=== PATIENT | female | born 1995 | race Two or more races ===

== ENCOUNTER → 2020-12-12 | Outpatient (CLI) | payer OTHER | LOC: LAB 10:27 | PROVIDERS: ATTEND Obstetrics & Gynecology | DX: Z01.812 Encounter for preprocedural laboratory examination (principal); Z20.822 Contact with and (suspected) exposure to COVID-19 | CPT/HCPCS: U0003 ==

== ENCOUNTER 2020-12-14 17:12 | Inpatient (IN) | payer OTHER ==
[~2020-12-14] VITALS: Ht 160 cm; Wt 89.8 kg
[2020-12-14] MEDS ORDERED: DINOPROSTONE 10 MG SUPP.VAG VG ONE (17:30)
[2020-12-14] MEDS ORDERED: LIDOCAINE 1% PF 30 ML VIAL. INJ PRN (17:30)
[2020-12-14] MEDS ORDERED: BUTORPHANOL 2 MG/ML VIAL. IVP PRN (17:30)
[2020-12-14] MEDS ORDERED: ACETAMINOPHEN 325 MG TABLET. PO PRN (17:30)
[2020-12-14] MEDS ORDERED: TERBUTALINE 1 MG/ML VIAL. SQ PRN (17:30)
[2020-12-14] MEDS ORDERED: 0.9 % SODIUM CHLORIDE 10 ML DISP.SYRIN. IV PRN (17:30)
[2020-12-14 18:11] LABS: BASO # 0.1 x10^3/uL (0.0-0.2); BASO % 1 % (0-3); EOS % 0 % (0-3); HEMATOCRIT 35.6 % (36.0-47.0); HEMOGLOBIN 11.9 g/dL (12.0-15.5); LYMPH % 22 % (24-48); MEAN CORPUSCULAR HEMOGLOBIN 29 pg (25-35); MEAN CORPUSCULAR HGB CONC 34 g/dL (31-37); MEAN CORPUSCULAR VOLUME 86 fL (79-100); MONO # 0.7 x10^3/uL (0.0-1.1); MONO % 7 % (0-9); NEUT # 6.3 x10^3/uL (1.8-7.7); NEUT % 69 % (31-73); PLATELET COUNT 169 x10^3/uL (140-400); RED BLOOD COUNT 4.15 x10^6/uL (3.50-5.40); RED CELL DISTRIBUTION WIDTH 14.9 % (11.5-14.5); WHITE BLOOD COUNT 9.1 x10^3/uL (4.0-11.0)
--- NOTE | 2020-12-14 18:13 | PDOC1 ---
WARDSPERSON H&P Date of Admission: Date of Admission: Dec 14, 2020 at 17:12 History of Present Illness: EDC: 12/10/20 LMP: 03/05/20 24y @ 40.4 by L=27 presents for indxn of labor. The pt began her care with [facility] and decided to [place] [facility] [place]. She missed several visits b/t 22-37wks due to transportation issues. The pt had not received TDAP. Explained that the added benefit of passive immunity would not be present since she is after 36wks. She would have the same benefit of getting the vaccine now as getting it PP. PMH: Denies PSH: Denies Meds: PNV All: NKDA OBHx: G1 SH: no tob, no EtOH FH: DM Allergies: Coded Allergies: No Known Drug Allergies (Unverified , 12/14/20) Physical Exam: PE: GENERAL: No apparent distress. Alert and oriented. HEENT: Head normocephalic, atraumatic. NECK: Supple LUNGS: Clear to auscultation. HEART: RRR, S1, S2 present, pulses intact ABDOMEN: Soft, positive bowel sounds. EXTREMITIES: No cyanosis or edema. NEUROLOGIC: Normal speech, normal tone PSYCHIATRIC: Normal affect, normal mood. SKIN: No ulceration. FHT: 130s +acels/no decels/mLTV Goulds: 10-15 min SVE: 10/27/-3 Labs: Laboratory Tests Test 12/14/20 18:00 White Blood Count 9.1 x10^3/uL (4.0-11.0) Red Blood Count 4.15 x10^6/uL (3.50-5.40) Hemoglobin 11.9 g/dL (12.0-15.5) L Hematocrit 35.6 % (36.0-47.0) L Mean Corpuscular Volume 86 fL (79-100) Mean Corpuscular Hemoglobin 29 pg (25-35) Mean Corpuscular Hemoglobin Concent 34 g/dL (31-37) Red Cell Distribution Width 14.9 % (11.5-14.5) H Platelet Count 169 x10^3/uL (140-400) Neutrophils (%) (Auto) 69 % (31-73) Lymphocytes (%) (Auto) 22 % (24-48) L Monocytes (%) (Auto) 7 % (0-9) Eosinophils (%) (Auto) 0 % (0-3) Basophils (%) (Auto) 1 % (0-3) Neutrophils # (Auto) 6.3 x10^3/uL (1.8-7.7) Lymphocytes # (Auto) 2.0 x10^3/uL (1.0-4.8) Monocytes # (Auto) 0.7 x10^3/uL (0.0-1.1) Eosinophils # (Auto) 0.0 x10^3/uL (0.0-0.7) Basophils # (Auto) 0.1 x10^3/uL (0.0-0.2) Laboratory Tests 12/14/20 18:00 Laboratory Tests 12/14/20 18:00 Assessment & Plan: A/P 24y @ 40.4 by L=27 1.) Indxn cervidil placed at 1811 2.) JENNIFER from [facility] at 22wks 3.) Gap in care b/t 22-37wks 4.) Rub NI 5.) Eduardo NI 6.) H/o meth use 7.) Flu given 08/06/20 8.) TDAP PP 9.) Fetus cat I FHT 10.) GBS neg EMANUEL RAMESH MD Dec 14, 2020 18:13
[2020-12-14 18:58] VITALS: BP 125/68
[2020-12-14 19:13] LABS: BILIRUBIN,URINE NEGATIVE (NEG); CLARITY,URINE CLEAR; COLOR,URINE YELLOW; NITRITE,URINE NEGATIVE (NEG); PH,URINE 5.5 (<5.0-8.0); PROTEIN,URINE NEGATIVE (NEG-TRACE); UROBILINOGEN,URINE 0.2 mg/dL (0.2 mg/dL)
[2020-12-14 19:29] LABS: BACTERIA,URINE FEW /HPF (0-FEW); RBC,URINE 0 /HPF (0-2)
[2020-12-14] MEDS ORDERED: IV NORMAL SALINE 1000ML BAG 1,000 ML IV SCH (19:30)
[2020-12-14 20:07] LABS: BARBITURATES NEG (NEG); BENZODIAZEPINES NEG (NEG); CANNABINOIDS NEG (NEG); COCAINE NEG (NEG); METHADONE NEG (NEG); OPIATES NEG (NEG); PHENCYCLIDINE NEG (NEG)
[2020-12-14 20:13] LABS: AMPHETAMINE/METHAMPHETAMINE NEG (NEG)
[2020-12-15] MEDS: IV RINGERS,LACTATED 1000ML 1,000 ML IV SCH ×3 (06:44→16:09)
[2020-12-15] MEDS ORDERED: OXYTOCIN PREMIX 30 UNIT/500 ML NS BAG. IV ONE (07:00)
[2020-12-15] MEDS ORDERED: L&D EPIDURAL SYRINGE 50 ML ONE ×3 (11:55→18:27)
[2020-12-15] MEDS ORDERED: ROPIVacaine 0.2% PF 10 ML VIAL. ONE ×2 (11:56→13:00)
[2020-12-15] MEDS: OXYTOCIN 30 UNIT/500 ML PREMIX 500 ML IV PRN ×2 (12:22→22:19)
[2020-12-15] MEDS ORDERED: L&D EPIDURAL 50 ML SYRINGE. ONE (13:00)
--- NOTE | 2020-12-15 15:56 | PDOC ---
FRONT DESK ATTENDANT PROGRESS NOTE Date of Service: DATE: 12/15/20 TIME: 15:55 Subjective: Pt comfortable with epidural Objective: Vital Signs: Vital Signs Date Time Temp Pulse Resp B/P (MAP) Pulse Ox O2 Delivery O2 Flow Rate FiO2 12/14/20 18:58 98.1 105 20 125/68 (87) 98.1 Vital Signs Date Time Temp Pulse Resp B/P (MAP) Pulse Ox O2 Delivery O2 Flow Rate FiO2 12/14/20 18:58 98.1 105 20 125/68 (87) 98.1 Labs: Laboratory Tests Test 12/14/20 18:00 12/14/20 18:30 White Blood Count 9.1 x10^3/uL (4.0-11.0) Red Blood Count 4.15 x10^6/uL (3.50-5.40) Hemoglobin 11.9 g/dL (12.0-15.5) L Hematocrit 35.6 % (36.0-47.0) L Mean Corpuscular Volume 86 fL (79-100) Mean Corpuscular Hemoglobin 29 pg (25-35) Mean Corpuscular Hemoglobin Concent 34 g/dL (31-37) Red Cell Distribution Width 14.9 % (11.5-14.5) H Platelet Count 169 x10^3/uL (140-400) Neutrophils (%) (Auto) 69 % (31-73) Lymphocytes (%) (Auto) 22 % (24-48) L Monocytes (%) (Auto) 7 % (0-9) Eosinophils (%) (Auto) 0 % (0-3) Basophils (%) (Auto) 1 % (0-3) Neutrophils # (Auto) 6.3 x10^3/uL (1.8-7.7) Lymphocytes # (Auto) 2.0 x10^3/uL (1.0-4.8) Monocytes # (Auto) 0.7 x10^3/uL (0.0-1.1) Eosinophils # (Auto) 0.0 x10^3/uL (0.0-0.7) Basophils # (Auto) 0.1 x10^3/uL (0.0-0.2) Treponema pallidum Antibody Nonreactive (Nonreactive) Urine Collection Type Unknown Urine Color Yellow Urine Clarity Clear Urine pH 5.5 (<5.0-8.0) Urine Specific Coyote 1.020 (1.000-1.030) Urine Protein Negative mg/dL (NEG-TRACE) Urine Glucose (UA) Negative mg/dL (NEG) Urine Ketones (Stick) Negative mg/dL (NEG) Urine Blood Negative (NEG) Urine Nitrite Negative (NEG) Urine Bilirubin Negative (NEG) Urine Urobilinogen Dipstick 0.2 mg/dL (0.2 mg/dL) Urine Leukocyte Esterase Small (NEG) Urine RBC 0 /HPF (0-2) Urine WBC 1-4 /HPF (0-4) Urine Squamous Epithelial Cells Mod /LPF Urine Bacteria Few /HPF (0-FEW) Urine Mucus Slight /LPF Urine Opiates Screen Neg (NEG) Urine Methadone Screen Neg (NEG) Urine Barbiturates Neg (NEG) Urine Phencyclidine Screen Neg (NEG) Urine Amphetamine/Methamphetamine Neg (NEG) Urine Benzodiazepines Screen Neg (NEG) Urine Cocaine Screen Neg (NEG) Urine Cannabinoids Screen Neg (NEG) Urine Ethyl Alcohol Neg (NEG) Laboratory Tests 12/14/20 18:00 Laboratory Tests 12/14/20 18:00 Physical Exam: GENERAL: No apparent distress. Alert and oriented. HEENT: Head normocephalic, atraumatic. NECK: Supple LUNGS: Clear to auscultation. HEART: RRR, S1, S2 present, pulses intact ABDOMEN: Soft, positive bowel sounds. EXTREMITIES: No cyanosis or edema. NEUROLOGIC: Normal speech, normal tone PSYCHIATRIC: Normal affect, normal mood. SKIN: No ulceration. FHT: 110s +acels/early decels with each ctx/mLTV Burket: 1-2 min SVE: 6/C/-2 Assessment & Plan: A/P 24y @ 40.5 by L=27 1.) Indxn s/p cervidil, on Pit, AROM for augmentation at ~1100 (light [facility]), now with more bloody show 2.) JENNIFER from [facility] at 22wks 3.) Gap in care b/t 22-37wks 4.) Rub NI 5.) Eduardo NI 6.) H/o meth use 7.) Flu given 08/06/20 8.) TDAP PP 9.) Fetus cat II FHT, IUPC and FSE placed to better characterize decels 10.) GBS neg RAMESH,EMANUEL B MD Dec 15, 2020 15:56
[2020-12-15] MEDS ORDERED: ePHEDrine PF IN SALINE 50 MG/10 ML SYRINGE. IV PRN (19:15)
[2020-12-15] MEDS ORDERED: NALOXONE 0.4 MG/ML VIAL. IV PRN (19:15)
[2020-12-15] MEDS ORDERED: IV RINGERS,LACTATED 1000ML 1,000 ML IV ONE (19:15)
[2020-12-15] MEDS ORDERED: ONDANSETRON PF 4 MG/2 ML VIAL. IV PRN (19:15)
[2020-12-15] MEDS ORDERED: fentaNYL PF VIAL 100 MCG/2 ML VIAL IV ONE (19:15)
--- NOTE | 2020-12-15 22:14 | PDOC ---
VAGINAL DELIVERY DATE DATE: 12/15/20 TIME: 22:11 TIME Patient delivered a viable male infant over intact perineum at 2153. Wt 8 lb 5 oz. Apgars 8/9. Placenta delivered spontaneously, intact with 3VC. 2nd degree lacerations repaired with 2'0 vicryl in nml fashion. Good hemostasis noted. 20 U of Pit given with IVF. EBL 400cc. WEIGHT Weight [ ] EMANUEL RAMESH MD Dec 15, 2020 22:14
[2020-12-15] MEDS ORDERED: ZOLPIDEM 5 MG TABLET. PO PRN (22:15)
[2020-12-15] MEDS ORDERED: HYDROCORTISONE 1% TOPICAL OINTMENT 30GM TUBE. TP PRN (22:15)
[2020-12-15] MEDS ORDERED: PHENYLEPH/MINERAL OIL/PETROLAT RECTAL OINTMENT TUBE. RC PRN (22:15)
[2020-12-15] MEDS ORDERED: MMR per PROTOCOL. MC PRN (22:15)
[2020-12-15] MEDS ORDERED: 0.9 % SODIUM CHLORIDE 10 ML DISP.SYRIN. IV PRN (22:15)
[2020-12-15] MEDS ORDERED: TDaP (Adacel) per PROTOCOL. MC PRN (22:15)
[2020-12-15] MEDS ORDERED: oxyCODONE/APAP 5/325 1 TAB TABLET PO PRN (22:15)
[2020-12-15] MEDS ORDERED: MAG HYDROX/ALUMINUM HYD/SIMETH 30 ML ORAL.SUSP PO PRN (22:15)
[2020-12-15] MEDS ORDERED: BENZOCAINE 20% TOPICAL AEROSOL SPRAY 57GM CAN. TP PRN (22:15)
[2020-12-15] MEDS ORDERED: MAGNESIUM HYDROXIDE 2,400 MG/30 ML ORAL.SUSP. PO PRN (22:15)
[2020-12-15] MEDS ORDERED: diphenhydrAMINE HCL 25 MG CAPSULE PO PRN (22:15)
[2020-12-15] MEDS ORDERED: ACETAMINOPHEN 325 MG TABLET. PO PRN (22:15)
[2020-12-15] MEDS ORDERED: SIMETHICONE 80 MG TAB.CHEW PO PRN (22:15)
[2020-12-15] MEDS ORDERED: OXYTOCIN 30 UNIT/500 ML PREMIX 500 ML IV PRN (22:15)
[2020-12-15] MEDS: IBUPROFEN 400 MG TABLET. PO PRN (22:49)
[2020-12-16 00:10] VITALS: BP 102/52
[2020-12-16 04:00] VITALS: BP 90/55
[2020-12-16 06:08] LABS: HEMATOCRIT 28.2 % (36.0-47.0); HEMOGLOBIN 9.4 g/dL (12.0-15.5); RED BLOOD COUNT 3.28 x10^6/uL (3.50-5.40); RED CELL DISTRIBUTION WIDTH 14.8 % (11.5-14.5)
[2020-12-16] MEDS: IBUPROFEN 400 MG TABLET. PO PRN ×2 (08:13→22:10)
[2020-12-16] MEDS: PRENATAL MULTIVITAMIN TABLET. PO SCH (08:13)
[2020-12-16] MEDS: FERROUS SULFATE 325 MG TABLET. PO SCH (08:13)
[2020-12-16] MEDS: DOCUSATE SODIUM 100 MG CAPSULE. PO PRN ×2 (08:13→22:11)
--- NOTE | 2020-12-16 08:42 | NUR ---
assessment done. Patient cheerful eating breakfast. boyfriend at bedside. baby was brought in room and patient very happy to hold baby.
--- NOTE | 2020-12-16 09:40 | PDOC ---
KENNEL KEEPER PROGRESS NOTE Date of Service: DATE: 12/16/20 TIME: 09:40 Subjective: Pt with good pain control. Sheba PO. Voiding. Minimal lochia. Objective: Vital Signs: Vital Signs Date Time Temp Pulse Resp B/P (MAP) Pulse Ox O2 Delivery O2 Flow Rate FiO2 12/16/20 00:10 99.3 100 18 102/52 (69) Room Air 99.3 12/16/20 04:00 96 Vital Signs Date Time Temp Pulse Resp B/P (MAP) Pulse Ox O2 Delivery O2 Flow Rate FiO2 12/16/20 04:00 97.8 87 18 90/55 (67) 96 Room Air 97.8 Labs: Laboratory Tests Test 12/16/20 05:23 White Blood Count 17.0 x10^3/uL (4.0-11.0) H Red Blood Count 3.28 x10^6/uL (3.50-5.40) L Hemoglobin 9.4 g/dL (12.0-15.5) L Hematocrit 28.2 % (36.0-47.0) L Mean Corpuscular Volume 86 fL (79-100) Mean Corpuscular Hemoglobin 29 pg (25-35) Mean Corpuscular Hemoglobin Concent 33 g/dL (31-37) Red Cell Distribution Width 14.8 % (11.5-14.5) H Platelet Count 133 x10^3/uL (140-400) L Laboratory Tests 12/16/20 05:23 Laboratory Tests 12/16/20 05:23 Physical Exam: GENERAL: No apparent distress. Alert and oriented. HEENT: Head normocephalic, atraumatic. NECK: Supple LUNGS: Clear to auscultation. HEART: RRR, S1, S2 present, pulses intact ABDOMEN: Soft, positive bowel sounds. EXTREMITIES: No cyanosis or edema. NEUROLOGIC: Normal speech, normal tone PSYCHIATRIC: Normal affect, normal mood. SKIN: No ulceration. FFNT below umb No C/C/E Assessment & Plan: A/P 24y PPD #1 s/p 1.) PP doing well 2.) Rub NI 3.) Eduardo NI 4.) H/o meth use 5.) Flu given 08/06/20 6.) Needs TDAP 7.) Hgb 11.9 -> 9.4 8.) Cont PP care EMANUEL RAMESH MD Dec 16, 2020 09:40
[2020-12-16 11:00] VITALS: BP 100/53
[2020-12-16 16:01] VITALS: BP 111/53
[2020-12-16 20:00] VITALS: BP 111/72
[2020-12-17 06:25] VITALS: BP 105/49
[2020-12-17] MEDS ORDERED: DIPH,PERTUSS(ACELL),TET VAC/PF 0.5 ML SYRINGE. VAX IM ONE (07:45)
[2020-12-17] MEDS: DOCUSATE SODIUM 100 MG CAPSULE. PO PRN (08:21)
[2020-12-17] MEDS: IBUPROFEN 400 MG TABLET. PO PRN (08:21)
[2020-12-17] MEDS: PRENATAL MULTIVITAMIN TABLET. PO SCH (08:21)
[2020-12-17] MEDS: FERROUS SULFATE 325 MG TABLET. PO SCH (08:21)
[2020-12-17] MEDS ORDERED: IBUP-1060 PO (08:56)
[2020-12-17] MEDS ORDERED: DOCU-109 PO (08:56)
[2020-12-17 11:40] VITALS: BP 117/79
--- NOTE | 2020-12-17 12:14 | NUR ---
Pt. discharges off of floor with infant and FOB, belongings returned to pt. RN accompanies off of floor at 1212pm
--- NOTE | 2020-12-17 13:06 | PDOC ---
MERGERS AND ACQUISITIONS BANKER PROGRESS NOTE Date of Service: DATE: 12/17/20 TIME: 13:05 Subjective: Pt with good pain control. Sheba PO. Voiding. Minimal lochia. Objective: Vital Signs: Vital Signs Date Time Temp Pulse Resp B/P (MAP) Pulse Ox O2 Delivery O2 Flow Rate FiO2 12/16/20 11:00 97.3 93 18 100/53 (69) 98 97.3 12/16/20 20:00 Room Air Vital Signs Date Time Temp Pulse Resp B/P (MAP) Pulse Ox O2 Delivery O2 Flow Rate FiO2 12/17/20 11:40 97.7 100 16 117/79 (92) 100 Room Air 97.7 Physical Exam: GENERAL: No apparent distress. Alert and oriented. HEENT: Head normocephalic, atraumatic. NECK: Supple LUNGS: Clear to auscultation. HEART: RRR, S1, S2 present, pulses intact ABDOMEN: Soft, positive bowel sounds. EXTREMITIES: No cyanosis or edema. NEUROLOGIC: Normal speech, normal tone PSYCHIATRIC: Normal affect, normal mood. SKIN: No ulceration. FFNT below umb No C/C/E Assessment & Plan: A/P 24y PPD #2 s/p 1.) PP doing well 2.) Rub NI 3.) Eduardo NI 4.) H/o meth use 5.) Flu given 08/06/20 6.) Needs TDAP 7.) Hgb 11.9 -> 9.4 8.) D/c home EMANUEL RAMESH MD Dec 17, 2020 13:06
--- NOTE | 2020-12-17 13:19 | DS ---
DATE OF DISCHARGE: 12/17/2020 ADMISSION DIAGNOSES: 1. Intrauterine at 40 weeks and 4 days by LMP equal to a 27-week ultrasound. 2. Induction of labor. 3. Transfer of care from [facility] at 22 weeks. 4. Gap in care between 22-37 weeks. 5. Rubella nonimmune. 6. Varicella nonimmune. 7. History of methamphetamine use. 8. GBS negative. DISCHARGE DIAGNOSES: 1. Intrauterine at 40 weeks and 4 days by LMP equal to a 27-week ultrasound. 2. Induction of labor. 3. Transfer of care from [facility] at 22 weeks. 4. Gap in care between 22-37 weeks. 5. Rubella nonimmune. 6. Varicella nonimmune. 7. History of methamphetamine use. 8. GBS negative. PROCEDURE: Spontaneous vaginal delivery. BRIEF HOSPITAL COURSE: The patient is a 24-year-old 1, para 0, who presented to Labor and Delivery at 40 weeks and 4 days by LMP equal to a 27-week ultrasound for induction of labor. The patient began her care at [facility], but [place] [facility] [place]. The patient missed several visits between 20-37 weeks due to transportation issues. The patient did not receive Tdap during the because she returned after 36 weeks. The patient initially presented to Labor and Delivery for Cervidil placement. At that time, her cervix was 1 cm dilated. The following morning, her Cervidil was taken out and she was found to be roughly 1-2 cm dilated. She was started on Pitocin early that morning. The patient's membranes were ruptured. The patient ultimately progressed to complete later that night and delivered by vaginal delivery. See delivery note for full detail. By day #2, the patient was meeting all discharge criteria and was subsequently discharged home. Of note, the patient had hemoglobin of 11.9 on admission and after delivery was found to be 9.4. The patient was also given the Tdap vaccine on day #2. DISCHARGE INSTRUCTIONS: The patient was told not to lift anything greater than 20 pounds, have pelvic rest for 6 weeks. CALL IF: The patient was to call if she had fevers, chills, nausea, vomiting, abdominal pain or any additional questions or concerns. FOLLOWUP APPOINTMENT: The patient is to follow up on 01/20 at 9:00 a.m. [place] [facility] [place]. DISCHARGE MEDICATIONS: The patient was given a prescription for Motrin 800 mg 30 pills and Colace 100 mg 30 pills. EMANUEL RAMESH MD DR: JOSE ALFREDO/gin JOB#: [id number] / [id number]
== END 2020-12-17 12:18 | disposition home or self-care (01) | DRG 807 ==
LOC: 3 SO LND 17:12
PROVIDERS: ADMIT Obstetrics & Gynecology; ATTEND Obstetrics & Gynecology
PROC: 0KQM0ZZ Repair Perineum Muscle, Open Approach (ICD-10-PCS; principal; 2020-12-15)
PROC: 10E0XZZ Delivery of Products of Conception, External Approach (ICD-10-PCS; 2020-12-15)
PROC: 3E0R3BZ Introduction of Anesthetic Agent into Spinal Canal, Percutaneous Approach (ICD-10-PCS; 2020-12-15)
PROC: 00HU33Z Insertion of Infusion Device into Spinal Canal, Percutaneous Approach (ICD-10-PCS; 2020-12-15)
PROC: 3E0P7VZ Introduction of Hormone into Female Reproductive, Via Natural or Artificial Opening (ICD-10-PCS; 2020-12-15)
PROC: 3E0234Z Introduction of Serum, Toxoid and Vaccine into Muscle, Percutaneous Approach (ICD-10-PCS; 2020-12-15)
PROC: 10907ZC Drainage of Amniotic Fluid, Therapeutic from Products of Conception, Via Natural or Artificial Opening (ICD-10-PCS; 2020-12-15)
DX: O70.1 Second degree perineal laceration during delivery (principal); Z37.0 Single live birth; Z3A.40 40 weeks gestation of pregnancy; Z23 Encounter for immunization
CPT/HCPCS: 36415; 80307; 81001; 85025; 85027; 86592; 86850; 86900; 86901; 87086; 90471; 90715; C1755; J2590; J2795; J3010; J7120; G0378